=== PATIENT | male | born 1995 | race Caucasian/White ===

== ENCOUNTER 2018-08-21 22:28 | Emergency (ER) | payer OTHER ==
[2018-08-21 22:38] VITALS: BP 106/61
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
== END 2018-08-21 23:45 | disposition home or self-care (01) ==
LOC: ER 22:28
DX: S09.90XA Unspecified injury of head, initial encounter (principal); S79.911A Unspecified injury of right hip, initial encounter; M54.2 Cervicalgia; M25.551 Pain in right hip; X58.XXXA Exposure to other specified factors, initial encounter
CPT/HCPCS: 70450; 72125; 99284